=== PATIENT | male | born 1985 | race Two or more races ===

== ENCOUNTER 2018-05-10 20:04 | Emergency (ER) | payer OTHER ==
[2018-05-10] MEDS ORDERED: HYDROCODONE/APAP 5/325 TAB PO ONE (20:19)
--- NOTE | 2018-05-10 20:23 | EDPHY ---
H & P Time Seen by Provider: 05/10/18 20:12 HPI/ROS: CHIEF COMPLAINT: Knee injury HISTORY OF PRESENT ILLNESS: 33-year-old male at a martial arts class, when he injured his right knee. 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 On further questioning it sounds like the patella was dislocated. Another individual at the class was able to relocate the patella by straightening the patient's leg. Patient denies any prior history of knee dislocations, patellar dislocations, ACL, internal derangement of the knee, prior surgeries. He reports being otherwise well prior to the event. REVIEW OF SYSTEMS: A comprehensive 10 system review of systems was reviewed and is otherwise negative aside from elements mentioned in the history of present illness and medical decision making. PAST MEDICAL HISTORY: Patient denies. SOCIAL HISTORY: Nonsmoker. GENERAL APPEARANCE: Alert, uncomfortable appearing. [id number] distress secondary to knee pain, laying with an ice pack on his right knee. FOCUSED EXAM OF right lower extremity: Extensor mechanism is intact, although patient has significant discomfort with straight leg raise. No obvious deformity of the knee. No significant swelling. Tenderness to palpation over the patellar tendon distal neurovascularly intact. Neurovascular exam: Good capillary refill, normal motor exam, normal neurologic exam. Smoking Status: Never smoked Constitutional: Initial Vital Signs Temperature (C) 36.7 C 05/10/18 20:09 Heart Rate 76 05/10/18 20:09 Respiratory Rate 19 05/10/18 20:09 Blood Pressure 119/80 05/10/18 20:09 O2 Sat (%) 100 05/10/18 20:09 O2 Delivery Mode Room Air Allergies/Adverse Reactions: No Known Allergies Allergy (Unverified 05/10/18 20:09) Home Medications: Medication Instructions Recorded NK [No Known Home Meds] 05/10/18 Medical Decision Making - Diagnostics Imaging Results: Right knee Impression: 1. Presumed avulsion fracture from the patella possible second minimally displaced avulsion on the medial aspect of the patella. 2. See above report for additional findings. Results called and discussed with Suma Cooper MD on 05/10/2018 at 20:51. Dictated By: Abdelrahman Avila MD ED Course/Re-evaluation: 33-year-old male presents to emergency department with pain, swelling, and tenderness over his right knee. It is held in slight flexion. History is consistent with a patellar dislocation. X-rays reveal the patella to be still subluxed laterally. Patient's knee was fully straightened and the patella appears to have been fully reduced at this point. X-rays also do demonstrate probable avulsion fracture off of the patella. Patient was placed in a knee immobilizer. He was given crutches to use as needed. He was then instructed regarding the importance of ice, rest, elevation, nonsteroidals, and pain medications as needed. He will follow up with Orthopedic surgery next week. Differential Diagnosis: Differential diagnosis for the patient's injury was considered including but not limited to contusion, abrasion, laceration, fracture, open fracture, or dislocation. - Data Points Medications Given: Discontinued Medications Hydrocodone Bitart/Acetaminophen ([place] 5/325) 1 tab PO EDNOW ONE Stop: 05/10/18 20:20 Last Admin: 05/10/18 20:28 Dose: 1 tab Hydrocodone Bitart/Acetaminophen ([place] 5/325mg Prepack#6) 1 btl TAKEHOME EDNOW ONE Stop: 05/10/18 20:58 Last Admin: 05/10/18 21:05 Dose: 1 btl Departure - Departure Disposition: Home, Routine, Self-Care Clinical Impression: Avulsion fracture of patella Patellar dislocation Qualifiers: Encounter type: initial encounter Laterality: right Qualified Code(s): S83.004A - Unspecified dislocation of right patella, initial encounter Condition: Good Instructions: Patellar Dislocation (ED), Knee Immobilizer (ED) Additional Instructions: Mainstay of therapy is rest, ice, immobilization, elevation, and nonsteroidal anti-inflammatories for pain and to decrease swelling. Apply ice for 20-30 minutes every 2-3 hours for the next 48 hours. I recommend Ibuprofen (Motrin, Advil) for pain and anti-inflammatory effects. Your dose is: Ibuprofen 600 mg every 6-8 hours with food. Okay to use hydrocodone as needed for severe pain. Wear the knee immobilizer until you are seen by the orthopedic surgeon. You do not need to wear the immobilizer during showers or when you are sleeping. Followup with the orthopedic surgeon as directed. You may see Dr. Cho or one of his colleagues. Call on Philip for an appointment. Referrals: Favio Zamora MD [Medical Doctor] - As per Instructions (Follow-up with Dr. Zamora or with any of the other providers at [facility]. Call on Sunday to establish an appointment for early next week. Be sure they know this is an emergency department follow-up visit.)
[2018-05-10] MEDS ORDERED: HYDROCOD/APAP 5/325 PREPACK#6 BTL TAKEHOME ONE (20:57)
[2018-05-10 21:08] VITALS: BP 119/78
== END 2018-05-10 21:11 | disposition home or self-care (01) ==
DX: S82.001A Unspecified fracture of right patella, initial encounter for closed fracture (principal); S83.004A Unspecified dislocation of right patella, initial encounter; X50.3XXA Overexertion from repetitive movements, initial encounter; Y92.9 Unspecified place or not applicable; Y99.9 Unspecified external cause status; Y93.75 Activity, martial arts
CPT/HCPCS: L1830